=== PATIENT | female | born 1970 | race Hispanic/Latino ===

== ENCOUNTER 2017-11-13 14:34 | Outpatient (CLI) | payer OTHER | END 2017-11-13 14:35 | disposition home or self-care (01) | LOC: BICRAD 14:34 | PROVIDERS: ATTEND Internal Medicine Rheumatology | DX: M54.5 Low back pain (principal); R76.0 Raised antibody titer | CPT/HCPCS: 72100 ==

== ENCOUNTER 2018-01-21 11:14 | Outpatient (CLI) | payer OTHER ==
[~2018-01-21 11:14] MED LIST: ISOVUE-370 76%-LOCM 1 ML ONE
== END 2018-01-21 11:15 | disposition home or self-care (01) ==
LOC: BICCT 11:14
DX: R07.9 Chest pain, unspecified (principal)
CPT/HCPCS: 75574

== ENCOUNTER 2018-05-07 13:53 | Outpatient (CLI) | payer OTHER | END 2018-05-07 13:54 | disposition home or self-care (01) | LOC: BICMAMMO 13:53 | DX: R92.8 Other abnormal and inconclusive findings on diagnostic imaging of breast (principal); Z80.3 Family history of malignant neoplasm of breast | CPT/HCPCS: G0279 ==

== ENCOUNTER 2019-04-26 15:34 | Outpatient (CLI) | payer OTHER ==
--- NOTE | 2019-04-27 09:09 | MMO ---
Bilateral MAMMO Bilat Screen [facility]. CLINICAL HISTORY: Patient is 49 years old and is seen for screening. The patient has no family history of breast cancer. The patient has no personal history of cancer. VIEWS: The views performed were: bilateral craniocaudal with tomosynthesis and bilateral mediolateral oblique with tomosynthesis. FILMS COMPARED: The present examination has been compared to prior imaging studies performed at [facility] on 03/24/2018, and at [facility] on 05/07/2018. This study has been interpreted with the assistance of computer-aided detection. MAMMOGRAM FINDINGS: There are scattered fibroglandular densities. There are no suspicious masses, suspicious calcifications, or new areas of architectural distortion. IMPRESSION: THERE IS NO MAMMOGRAPHIC EVIDENCE OF MALIGNANCY. A ROUTINE FOLLOW-UP MAMMOGRAM IN 1 YEAR IS RECOMMENDED. THE RESULTS OF THIS EXAM WERE SENT TO THE PATIENT. ACR BI-RADS Category 1 - Negative MAMMOGRAPHY NOTE: 1. A negative mammogram report should not delay a biopsy if a dominant of clinically suspicious mass is present. 2. Approximately 10% to 15% of breast cancers are not detected by mammography. 3. Adenosis and dense breasts may obscure an underlying neoplasm. Reported by: KAYLAN HAAS MD Electonically Signed: [id number]
== END 2019-04-26 15:35 | disposition home or self-care (01) ==
LOC: BICMAMMO 15:34
PROVIDERS: ATTEND Internal Medicine
DX: Z12.31 Encounter for screening mammogram for malignant neoplasm of breast (principal)
CPT/HCPCS: 77063; 77067

== ENCOUNTER 2019-05-09 11:11 | Outpatient (CLI) | payer OTHER ==
--- NOTE | 2019-05-09 14:54 | CT ---
EXAM: CT of the chest with contrast HISTORY: Pulmonary nodules. COMPARISON: Report 03/24/2018 TECHNIQUE: Multiple contiguous axial images were obtained in a CT the chest with contrast. Coronal an d sagittal reformats were performed. FINDINGS: HEART: Normal in size without focal cardiac abnormality MEDIASTINUM: No hilar or mediastinal lymphadenopathy. LUNGS: There is a 5 mm nodule in the right minor fissure which likely represents an intrafissural lym ph node. A 3 mm nodular opacity seen in the right middle lobe on image 3453 of. A 3 mm nodular opacity is seen in the left lower lobe on image 39 of 53. No other pulmonary nodules are seen. PLEURAL SPACE: No pneumothorax or pleural effusion. CHEST WALL SOFT TISSUES: Unremarkable OSSEOUS STRUCTURES: Unremarkable VISUALIZED SUBDIAPHRAGMATIC STRUCTURES: Fatty liver IMPRESSION: 1. No suspicious pulmonary nodules identified. The largest nodule likely represents an intrafissural lymph node. 2. Fatty liver
== END 2019-05-09 11:12 | disposition home or self-care (01) ==
LOC: SCSCT 11:11
DX: R91.8 Other nonspecific abnormal finding of lung field (principal); K76.0 Fatty (change of) liver, not elsewhere classified
CPT/HCPCS: 71260

== ENCOUNTER 2021-05-08 10:47 | Outpatient (CLI) | payer OTHER | END 2021-05-08 10:48 | disposition home or self-care (01) | LOC: BICMAMMO 10:47 | PROVIDERS: ATTEND Family Medicine | DX: Z12.31 Encounter for screening mammogram for malignant neoplasm of breast (principal) | CPT/HCPCS: 77063; 77067 ==

== ENCOUNTER 2021-07-11 11:52 | Outpatient (CLI) | payer OTHER ==
[~2021-07-11 11:52] MED LIST changes: -ISOVUE-370 76%-LOCM 1 ML ONE; +Iopamidol 370 76% 100 ML VIAL ONE
== END 2021-07-11 11:53 | disposition home or self-care (01) ==
LOC: CT 11:52
PROVIDERS: ATTEND Internal Medicine Pulmonary Disease
DX: R91.8 Other nonspecific abnormal finding of lung field (principal); K76.0 Fatty (change of) liver, not elsewhere classified; I25.10 Atherosclerotic heart disease of native coronary artery without angina pectoris
CPT/HCPCS: 71260

== ENCOUNTER 2024-06-23 11:52 | Outpatient (CLI) | payer OTHER | END 2024-06-23 11:53 | disposition home or self-care (01) | LOC: SCSRAD 11:52 | PROVIDERS: ATTEND Nurse Practitioner Family | DX: R06.02 Shortness of breath (principal); R91.8 Other nonspecific abnormal finding of lung field | CPT/HCPCS: 71046 ==